=== PATIENT | female | born 1960 | race Caucasian/White ===

== ENCOUNTER 2017-06-05 18:35 | Emergency (ER) | payer OTHER ==
[~2017-06-05] VITALS: Ht 162.6 cm; Wt 68.0 kg
[~2017-06-05 18:35] MED LIST: IBUP200C5 PO; [UNRECOGNIZED DRUG - CODE] PO
--- NOTE | 2017-06-05 19:10 | NUR ---
Received report from PHILL Troncoso. Assumed care of pt at this time. Dr. Jiménez into see pt for MSE
--- NOTE | 2017-06-05 19:26 | NUR ---
Laceration repair completed by Dr. Jiménez with sutures. Rox applied
[2017-06-05] MEDS ORDERED: LIDOCAINE HCL 2% 20 ML VIAL TP ONE (19:30)
[2017-06-05] MEDS ORDERED: TDAP DIPH,PERTUSS,TET VAC/PF 0.5 ML DISP.SYRIN IM ONE ×2 (19:30→19:38)
--- NOTE | 2017-06-05 19:55 | NUR ---
Pt stable for discharge per MD. Pt given ACI. Pt verbalized understanding of dc instructions. Pt ambulated out of er with steady gait.
[2017-06-05 19:57] VITALS: BP 125/75
== END 2017-06-05 19:50 | disposition home or self-care (01) ==
LOC: ER 18:38
DX: S61.512A Laceration without foreign body of left wrist, initial encounter (principal); F17.200 Nicotine dependence, unspecified, uncomplicated; F32.9 Major depressive disorder, single episode, unspecified; W26.8XXA Contact with other sharp object(s), not elsewhere classified, initial encounter; Y93.89 Activity, other specified; Y92.59 Other trade areas as the place of occurrence of the external cause; Y99.0 Civilian activity done for income or pay
CPT/HCPCS: 12001; 90471; 90715; 99283; A4663

== ENCOUNTER 2017-06-07 11:02 | Emergency (ER) | payer BC, OTHER ==
[~2017-06-07] VITALS: Ht 160 cm; Wt 58.5 kg
--- NOTE | 2017-06-07 11:20 | NUR ---
PT IS IN ROOM #2A. DR PERALTA EVALUATED THE PT.
--- NOTE | 2017-06-07 11:45 | NUR ---
PT WAS D/C TO HOME. D/C INSTRUCTIONS GIVEN TO THE PT.
[2017-06-07 11:46] VITALS: BP 125/78
== END 2017-06-07 23:59 | disposition home or self-care (01) ==
LOC: ER 11:02
DX: S61.215D Laceration without foreign body of left ring finger without damage to nail, subsequent encounter (principal); F17.200 Nicotine dependence, unspecified, uncomplicated; X58.XXXD Exposure to other specified factors, subsequent encounter
CPT/HCPCS: A4663

== ENCOUNTER 2018-06-20 17:51 | Emergency (ER) | payer BC ==
[~2018-06-20] VITALS: Ht 160 cm; Wt 54.4 kg
[2018-06-20 18:19] VITALS: BP 111/74
--- NOTE | 2018-06-20 18:19 | NUR ---
Patient discharged to home in stable conditon. Written and verbal after care instructions given. Patient verbalizes understanding of instructions.
== END 2018-06-20 18:19 | disposition home or self-care (01) ==
LOC: ER 17:52
DX: S61.012A Laceration without foreign body of left thumb without damage to nail, initial encounter (principal); F17.200 Nicotine dependence, unspecified, uncomplicated; W26.0XXA Contact with knife, initial encounter; Y93.89 Activity, other specified; Y92.89 Other specified places as the place of occurrence of the external cause; Y99.8 Other external cause status
CPT/HCPCS: A4217; A4663

== ENCOUNTER 2018-07-13 20:15 | Emergency (ER) | payer BC ==
[~2018-07-13] VITALS: Ht 160 cm; Wt 58.1 kg
[2018-07-13] MEDS ORDERED: GABAPENTIN 100 MG CAPSULE (20:29)
[2018-07-13] MEDS ORDERED: ESCITALOPRAM 10 MG TABLET (20:29)
[2018-07-13 21:06] LABS: BASOPHILS % (AUTO) 0.7 % (0.0-2.0); EOSINOPHILS % (AUTO) 0.8 % (0.0-7.0); HEMATOCRIT 42.8 % (31.2-41.9); HEMOGLOBIN 14.8 g/dL (10.9-14.3); LYMPHOCYTES # (AUTO) 1.8 K/uL (20.0-40.0); LYMPHOCYTES % (AUTO) 34.5 % (20.5-51.5); MEAN CORPUSCULAR HEMOGLOBIN 34.2 uug (24.7-32.8); MEAN CORPUSCULAR HGB CONC 35 g/dL (32.3-35.6); MEAN CORPUSCULAR VOLUME 99.2 fL (75.5-95.3); MONOCYTES # (AUTO) 0.4 K/uL (2.0-10.0); MONOCYTES % (AUTO) 7.8 % (0.0-11.0); NEUTROPHILS # (AUTO) 2.9 K/uL (1.8-8.9); NEUTROPHILS % (AUTO) 56.2 % (38.5-71.5); PLATELET COUNT (AUTO) 251 K/uL (179-408); RED BLOOD CELL COUNT(AUTO) 4.32 MIL/uL (3.63-4.92); WHITE BLOOD COUNT (AUTO) 5.2 K/uL (3.8-11.8)
[2018-07-13 21:16] LABS: CARBON DIOXIDE 27 mmol/L (21-32); CHLORIDE 108 mmol/L (98-107); CREATININE 0.7 mg/dL (0.6-1.3); GLUCOSE 110 mg/dL (74-106); POTASSIUM 3.7 mmol/L (3.5-5.1); UREA NITROGEN, BLOOD 10 mg/dL (7-18)
[2018-07-13 21:21] LABS: ALANINE AMINOTRANSFERASE 25 U/L (14-59); ALKALINE PHOSPHATASE 64 U/L (50-136); ASPARTATE AMINOTRANSFERASE 19 U/L (15-37); BILIRUBIN,DIRECT 0.1 mg/dL (0.0-0.2); BILIRUBIN,TOTAL 0.3 mg/dL (0.2-1.0); TOTAL PROTEIN, SERUM 7.3 g/dL (6.4-8.2)
[2018-07-13 21:28] LABS: ACETAMINOPHEN < 2.0 ug/mL (10-30)
[2018-07-13 21:35] LABS: ETHANOL 370 MG/DL (0-0)
[2018-07-13 21:43] LABS: THYROID STIMULATING HORMONE 2.215 mIU/mL (0.358-3.740)
--- NOTE | 2018-07-13 21:43 | NUR ---
PT'S LEAVES BEDSIDE. HOWEVER, HE LEAVES CONTACT INFO Addendum: 07/13/18 at 2217 by NIKKIE 'S NAME: NORM
[2018-07-13] MEDS ORDERED: LORAZEPAM 2 MG/1 ML VIAL ONE (21:54)
--- NOTE | 2018-07-13 21:55 | NUR ---
PT IN ROUTE TO CT IN [place] W/ TRANSPORTER
[2018-07-13] MEDS ORDERED: LORAZEPAM 2 MG/1 ML VIAL IV ONE (22:00)
--- NOTE | 2018-07-13 22:16 | NUR ---
PT RETURNS FROM CT IN [place] W/ MARIE
--- NOTE | 2018-07-13 23:15 | NUR ---
Patient discharged to home in stable conditon. Written and verbal after care instructions given. Patient verbalizes understanding of instructions.
[2018-07-14 00:07] VITALS: BP 95/63
== END 2018-07-13 23:15 | disposition home or self-care (01) ==
LOC: ER 20:15
DX: F10.129 Alcohol abuse with intoxication, unspecified (principal)
CPT/HCPCS: 70030-TC; 70450; 71045; 72125; 84443; 85025; 85730; 93005; A4663; G0480; G0480-TC; J2060; J7030